=== PATIENT | female | born 1985 | race African-American/Black ===

== ENCOUNTER 2016-11-25 14:31 | Emergency (ER) | payer SELFPAY ==
[2016-11-25 14:42] VITALS: BP 126/74; PULSE 79; TEMP 98.5; BMI 25.1
--- NOTE | 2016-11-25 15:10 | PDOC ---
History of Present Illness - General Chief Complaint: Weakness Stated Complaint: Weakness Time Seen by Provider: 11/25/16 15:00 History Source: Patient Exam Limitations: No Limitations - History of Present Illness Initial Comments: CHIEF COMPLAINT: 30 y/o afebrile female with no significant PMH c/o feeling "tired" for 2 months. HISTORY OF PRESENT ILLNESS: The patient states she constantly feels "tired". This has been going on for 2 months. She states she also has some blood tinged nasal discharge daily for the last 1-2 months. She denies f/c, dizziness, n/v/d , Cp, SOB, palpitations, sinus OGDEN, nosebleeds, abd pain, back pain, abnormal periods. She admits she doesn't sleep much and doesn't drink much water. She currently has no PCP. Vital signs on arrival are within normal limits. REVIEW OF SYSTEMS: GENERAL/CONSTITUTIONAL: No fever/chills. No weakness. No weight change. + fatigue HEAD, EYES, EARS, NOSE AND THROAT: No change in vision. No ear pain or discharge. No sore throat. +blood tinged nasal discharge. CARDIOVASCULAR: No chest pain or shortness of breath. RESPIRATORY: No cough, wheezing, or hemoptysis. GASTROINTESTINAL: No abd pain, nausea, vomiting, diarrhea. GENITOURINARY: No dysuria, frequency, or change in urination. MUSCULOSKELETAL: No joint or muscle swelling or pain. No neck or back pain. SKIN: No rash or easy bruising. NEUROLOGIC: No headache, vertigo, loss of consciousness, or loss of sensation. PHYSICAL EXAM: GENERAL: The patient is awake, alert, and fully oriented, in no acute distress. She is very well appearing, ambulatory, in NAD or obvious discomfort. HEAD: Normal with no signs of trauma. No pain with palpation of sinuses. ENT: Pupils equal, round and reactive to light, extraocular movements intact, sclera anicteric, conjunctiva clear and pink. Inflammed nasal turbinates, worse on right side. No septal hematoma. LUNGS: Clear to auscultation bilaterally. Normal excursion. No respiratory distress or use of accessory muscles. CV: RRR, S1/S2, no MRG. Cap refill < 2 sec. ABDOMEN: Soft, non-distended, non-tender even to deep palpation, no hepatomegaly or splenomegaly, no masses. EXTREMITIES: Normal range of motion, no edema. NEUROLOGICAL: Normal speech, normal gait. CN II-XII grossly intact. PSYCH: Normal mood, normal affect. SKIN: Warm, dry, normal turgor, no rashes or lesions noted. Past History - Past Medical History Allergies/Adverse Reactions: Allergies Allergy/AdvReac Type Severity Reaction Status Date / Time No Known Allergies Allergy Verified 11/25/16 14:42 Home Medications: Ambulatory Orders NK [No Known Home Medication] 11/25/16 Other medical history: NONE - Immunization History Immunization Up to Date: Yes - Psycho/Social/Smoking Cessation Hx Anxiety: No Suicidal Ideation: No Smoking History: Never smoked Hx Alcohol Use: Yes (rare) Drug/Substance Use Hx: No Substance Use Type: None *Physical Exam - Vital Signs Last Vital Signs Temp Pulse Resp BP Pulse Ox 98.5 F 79 20 126/74 100 11/25/16 14:39 11/25/16 14:39 11/25/16 14:39 11/25/16 14:39 11/25/16 15:01 ED Treatment Course - LABORATORY CBC & Chemistry Diagram: 11/25/16 15:20 11/25/16 15:20 Medical Decision Making - Medical Decision Making A/P: 30 y/o afebrile female with fatigue x 2 months and periodic blood tinged nasal discharge. Plan is to check for anemia. Labs unremarkable. Suggested the patient use normal saline for her nose to help keep it moist and f /u with Dr. Muller within 2 weeks for further evaluation of her fatigue. instructed her to increase her water intake and encouraged at least 8 hours of sleep per night. Instructed her to return to the ER with any worsening or concerning symptoms. The patient verbalizes understanding of all instructions, has no further questions and is awaiting discharge. *DC/Admit/Observation/Transfer Diagnosis at time of Disposition: Fatigue Qualifiers: Fatigue type: unspecified Qualified Code(s): R53.83 - Other fatigue - Discharge Dispostion Disposition: HOME Condition at time of disposition: Good - Referrals Referrals: Fady Muller MD [Staff Physician] - 14 days - Patient Instructions Printed Discharge Instructions: DI for Fatigue Additional Instructions: Discharge Instructions: -All of your lab tests were normal. -Call Dr. Muller and schedule follow up appointment within 2 weeks. -Drink at least 64oz of water daily -Get at least 8 hours of sleep per night -Return to the ER with any worsening or concerning symptoms
[2016-11-25 15:24] LABS: URINE APPEARANCE CLEAR; URINE BILIRUBIN NEGATIVE (NEGATIVE); URINE COLOR LTYELLOW; URINE GLUCOSE (UA) NEGATIVE (NEGATIVE); URINE KETONE NEGATIVE (NEGATIVE); URINE LEUK ESTERASE NEGATIVE (NEGATIVE); URINE NITRITE NEGATIVE (NEGATIVE); URINE PROTEIN NEGATIVE (NEGATIVE); URINE UROBILINOGEN 4.0 E.U/dl E.U./dl (0.2-1.0)
[2016-11-25 15:30] LABS: BASOPHIL 1.1 % (0-2.0); EOSINOPHIL 2.1 % (0-4.5); MCH 25.8 pg (25.7-33.7); MCHC 33.5 g/dl (32.0-36.0); MEAN CELL VOLUME 77.1 fl (80-96); MEAN PLT VOLUME 7.8 fl (7.5-11.1); NEUTROPHILS 51.9 % (42.8-82.8); PLATELET COUNT 219 K/MM3 (134-434); RDW 13.5 % (11.6-15.6); WHITE BLOOD COUNT 3.6 K/mm3 (4.0-10.0)
[2016-11-25 15:49] LABS: ALK PHOS 55 U/L (45-117); ANION GAP 6 (8-16); BILIRUBIN,TOTAL 0.8 mg/dL (0.2-1.0); CALCIUM 9.1 mg/dL (8.5-10.1); CO2 29 mmol/L (21-32); CREATININE 0.7 mg/dL (0.55-1.02); GLUCOSE,RANDOM 88 mg/dL (74-106); SGOT/AST 16 U/L (15-37); SGPT/ALT 18 U/L (12-78); TOT PROT 7.3 g/dl (6.4-8.2)
[2016-11-25 15:52] LABS: URINE BLOOD 3+ (NEGATIVE)
--- NOTE | 2016-11-25 16:04 | PDOC ---
*Physical Exam - Vital Signs Last Vital Signs Temp Pulse Resp BP Pulse Ox 98.5 F 79 20 126/74 100 11/25/16 14:39 11/25/16 14:39 11/25/16 14:39 11/25/16 14:39 11/25/16 15:01 ED Treatment Course - LABORATORY CBC & Chemistry Diagram: 11/25/16 15:20 11/25/16 15:20 - ADDITIONAL ORDERS Additional order review: Laboratory Results 11/25/16 11/25/16 15:20 15:10 Sodium 140 Potassium 3.7 Chloride 105 Carbon Dioxide 29 Anion Gap 6 L BUN 9 Creatinine 0.7 Creat Clearance w eGFR > 60 Random Glucose 88 Calcium 9.1 Total Bilirubin 0.8 AST 16 ALT 18 Alkaline Phosphatase 55 Total Protein 7.3 Albumin 4.0 Urine Color Ltyellow Urine Appearance Clear Urine pH 6.0 Urine Protein Negative Urine Glucose (UA) Negative Urine Ketones Negative Urine Blood 3+ H Urine Nitrite Negative Urine Bilirubin Negative Urine Urobilinogen 4.0 e.u/dl H Ur Leukocyte Esterase Negative Urine HCG, Qual Negative 11/25/16 15:20 RBC 4.66 MCV 77.1 L MCHC 33.5 RDW 13.5 MPV 7.8 Neutrophils % 51.9 Lymphocytes % 36.1 Monocytes % 8.8 Eosinophils % 2.1 Basophils % 1.1 Medical Decision Making - Medical Decision Making 11/25/16 16:01 This is a 30 yo F who presents to the ER with a complaint of fatigue Pt family member states that she is always fatigued like this No pain No fevers No nausea or vomiting No diarrhea Pt seen by Midlevel Provider under my direct supervision Pt interviewed and examined Ancillary studies reviewed I agree with plan as outlined by Midlevel Provider *DC/Admit/Observation/Transfer Diagnosis at time of Disposition: Fatigue Qualifiers: Fatigue type: unspecified Qualified Code(s): R53.83 - Other fatigue - Discharge Dispostion Condition at time of disposition: Good - Referrals Referrals: Fady Muller MD [Staff Physician] - 14 days - Patient Instructions Printed Discharge Instructions: DI for Fatigue Additional Instructions: Discharge Instructions: -All of your lab tests were normal. -Call Dr. Muller and schedule follow up appointment within 2 weeks. -Drink at least 64oz of water daily -Get at least 8 hours of sleep per night -Return to the ER with any worsening or concerning symptoms - Post Discharge Activity
[2016-11-25 16:22] LABS: URINE MUCUS RARE; URINE RBC 3 /hpf (0-3); URINE WBC 1 /hpf (3-5)
== END 2016-11-25 16:06 | disposition home or self-care (01) ==
LOC: JER 14:31
DX: R53.83 Other fatigue (principal)
CPT/HCPCS: 36415; 80053; 81003; 81015; 84703; 85025; 99282-25